=== PATIENT | male | born 1965 | race Caucasian/White ===

== ENCOUNTER 2019-05-07 00:34 | Day surgery (SDC) | payer BC, SELFPAY ==
[2019-04-30 15:14] VITALS: BMI 30.4
[2019-05-07 09:11] VITALS: BP 149/89; PULSE 92; RESP 17; TEMP 36.9; O2SAT 96; BMI 31.4
[2019-05-07] MEDS: LACTATED RINGERS 1,000 ML 150 ML IV CONT (09:26)
--- NOTE | 2019-05-07 09:55 | PM.HPGS ---
History of Present Illness History of Present Illness Consent: Risks, benefits, and alternatives have been discussed and questions answered. Patient agrees to proceed with procedure. Chief complaint: Neoplasm Screening, History of Polyps Narrative: Luis Alberto Valdes is a 54 year old W male for colonoscopy secondary to a history of multiple polyps one year ago. Pt. asymptomatic PMFSH Past Medical History Medical History (Updated 05/07/19 @ 09:57 by Sushant Barkley MD) COPD (chronic obstructive pulmonary disease) Hypertension Surgical History Surgical History (Updated 05/07/19 @ 09:58 by Sushant Barkley MD) History of carpal tunnel release of both wrists Meds Home Medications and Allergies Home Medications Medication Instructions Recorded Confirmed Type amlodipine 10 mg PO DAILY 04/30/19 05/07/19 History hydrocodone-acetaminophen 7.5 tablet PO PRN PRN 04/30/19 05/07/19 History irbesartan-hydrochlorothiazide 300 tablet PO DAILY 04/30/19 05/07/19 History Allergies Allergy/AdvReac Type Severity Reaction Status Date / Time Penicillins Allergy Mild Hives / Verified 05/07/19 09:11 Red Face Vital Signs Vital Signs - 24 hr 05/07/19 09:11 Temperature 36.9 C Pulse Rate 92 Respiratory Rate 17 Blood Pressure 149/89 H Pulse Oximetry 96 Exam Const: Orientation/consciousness: patient oriented x3 Resp: Auscultation: clear to auscultation bilaterally Cardio: Rate: regular rate Rhythm: regular rhythm Heart sounds: no murmurs GI: GI Palp: Yes Soft to palpation, No Tenderness to palpation present (GI), Yes No hepatosplenomegaly present and No Palpable mass present Auscultation: normal bowel sounds Neuro: General: patient oriented x3 and no focal motor deficits Extrem: General: no pedal edema Assessment and Plan Additional Plan colonoscopy secondary to hx of multiple colonic polyps
--- NOTE | 2019-05-07 10:22 | WPDANESEPPF ---
Anes - Initial Pre Proc Eval Procedure: Operation Date: 05/07/19 10:30 Proposed Procedures p Screening Colonoscopy - Sushant Barkley MD Date/Time: 05/07/19 10:22 Surgeon: Sushant Barkley MD Pre Op Diagnosis: Neoplasm Screening, History of Polyps Patient Data Age: 54 Gender: M Height: 5 ft 8 in Weight: 93.7 kg Last Vital Signs Temp 98.5 F 05/07/19 09:11 Pulse 92 05/07/19 09:11 Resp 17 05/07/19 09:11 BP 149/89 H 05/07/19 09:11 Pulse Ox 96 05/07/19 09:11 Allergies Allergy/AdvReac Type Severity Reaction Status Date / Time Penicillins Allergy Mild Hives / Verified 05/07/19 09:11 Red Face Home Medications Medication Instructions Recorded Confirmed Type amlodipine 10 mg PO DAILY 04/30/19 05/07/19 History hydrocodone-acetaminophen 7.5 tablet PO PRN PRN 04/30/19 05/07/19 History irbesartan-hydrochlorothiazide 300 tablet PO DAILY 04/30/19 05/07/19 History Patient hx anesthesia problems: none Family hx anesthesia problems: none PMFSH Past Medical History Medical History (Updated 05/07/19 @ 09:57 by Sushant Barkley MD) COPD (chronic obstructive pulmonary disease) Hypertension Surgical History Surgical History (Updated 05/07/19 @ 09:58 by Sushant Barkley MD) History of carpal tunnel release of both wrists Anes - Eval Final PreProcedure Day of Procedure 05/07/19 10:22 Patient weight: overweight Heart: regular rate and rhythm Lungs: clear to auscultation Airway: Mallampati scale class II Neurological: alert and oriented Last oral intake: >/= 8 hours ASA classification: II Emergent: no Anesthesia type and monitoring: general GIVS and standard monitoring Informed Consent: The patient's anesthetic plan and its attendant risks and benefits were discussed with the patient/family/POA. Questions were solicited and answers provided to the satisfaction of the patient/family/POA.
[2019-05-07] MEDS: SIMETHICONE ORAL SUSPENSION 20 MG/0.3 ML 30 ML BOTTLE 0.6 ML IRRIGATION (11:08)
[2019-05-07 11:22] VITALS: BP 108/72; PULSE 93; RESP 23; O2SAT 94
[2019-05-07 11:32] VITALS: BP 120/75; PULSE 86; RESP 22; O2SAT 97
[2019-05-07 11:42] VITALS: BP 130/76; PULSE 83; RESP 20; O2SAT 97
== END 2019-05-07 11:49 | disposition home or self-care (01) ==
PROVIDERS: PCP Emergency Medicine; Visit Provider Internal Medicine Gastroenterology
PROC: 0DJD8ZZ Inspection of Lower Intestinal Tract, Via Natural or Artificial Opening Endoscopic (ICD-10-PCS; CPT 45378; principal; 2019-05-07 10:30)
DX: Z12.11 Encounter for screening for malignant neoplasm of colon (principal); D12.0 Benign neoplasm of cecum; I10 Essential (primary) hypertension; J44.9 Chronic obstructive pulmonary disease, unspecified
CPT/HCPCS: 45380; 88305; J2704; J7120

== ENCOUNTER 2019-08-27 19:01 | Emergency (ER) | payer OTHER, BC, SELFPAY ==
--- NOTE | ~2019-08-27 | XR_ITS ---
EXAMINATION: XR thoracic spine 3V DATE: 08/27/2019 20:59 INDICATION: Back pain TECHNIQUE: AP, lateral and lateral swimmer's views of the thoracic spine were obtained. COMPARISON: None. FINDINGS: There is no fracture, dislocation, or subluxation. The vertebral body heights and alignment are normal. There is mild loss of intervertebral disc space height at multiple levels of the thoraci c spine. Small degenerative osteophytes project from the anterior endplates of multiple vertebral bod ies. IMPRESSION: 1. Mild thoracic spondylosis without acute findings. Reviewed, dictated and finalized at location A.
--- NOTE | ~2019-08-27 | XR_ITS ---
EXAMINATION: XR hip RT 2V w AP pelvis INDICATION: Right hip pain TECHNIQUE: AP view of the pelvis and two views of the right hip are obtained. COMPARISON: None available FINDINGS: Bone alignment is normal. There is no fracture. Calcified atherosclerosis is noted in the p elvic and right leg. There is mild lower lumbar spondylosis. IMPRESSION: 1. No acute osseous abnormality. Reviewed, dictated and finalized at location A.
--- NOTE | ~2019-08-27 | XR_ITS ---
EXAMINATION: XR lumbar spine 2-3V DATE: 08/27/2019 20:59 INDICATION: Back and hip pain TECHNIQUE: Anteroposterior and lateral views of the lumbar spine, and cone-down lateral view of the l umbosacral junction were obtained. COMPARISON: None. FINDINGS: There is no fracture, dislocation, or subluxation. The vertebral body heights and alignment are normal. The intervertebral disc spaces are maintained. Small degenerative osteophytes project fr om the anterior endplates of multiple vertebral bodies. There is mild facet osteoarthritis of the low er lumbar spine. Calcified atherosclerosis is noted. IMPRESSION: 1. Mild lumbar spondylosis without acute findings. Reviewed, dictated and finalized at location A.
--- NOTE | ~2019-08-27 | CT_ITS ---
EXAMINATION: CT brain wo con INDICATION: Head injury COMPARISON: 02/06/2007 TECHNIQUE: Standard unenhanced head CT. The dose-length product (DLP) was 605.33 mGy-cm. The mA was a djusted according to patient size. Iterative reconstruction technique was employed. FINDINGS: There is no intracranial hemorrhage, acute infarction, or abnormal mass lesion. The ventric les are normal. There is no abnormal mass effect or midline shift. The merritt-white matter differentiat ion is normal. The basal cisterns are patent. The orbits are normal. The paranasal sinuses, mastoids and calvarium are normal. IMPRESSION: 1. No acute intracranial abnormality. Reviewed, dictated and finalized at location A.
--- NOTE | ~2019-08-27 | XR_ITS ---
EXAMINATION: XR femur RT min 2V INDICATION: Right hip pain TECHNIQUE: Two views of the right femur are obtained on four radiographs COMPARISON: None available FINDINGS: Bone alignment is normal. There is no fracture. Calcified atherosclerosis is noted. IMPRESSION: 1. No acute osseous abnormality. Reviewed, dictated and finalized at location A.
--- NOTE | ~2019-08-27 | CT_ITS ---
EXAMINATION: CT cervical spine wo con DATE: 08/27/2019 20:41 INDICATION: Neck pain TECHNIQUE: Computed tomography (CT) of the cervical spine was performed without intravenous contrast. The dose-length product (DLP) was 380.77 mGy-cm. Automated exposure control and iterative reconstruc tion technique were employed. COMPARISON: None FINDINGS: There is no fracture, dislocation, or subluxation. The vertebral body heights, alignment, a nd intervertebral disc spaces are normal. The odontoid is intact. Small degenerative osteophytes proj ect from the anterior endplates of multiple vertebral bodies. The prevertebral soft tissues are robel l. IMPRESSION: 1. Mild cervical spondylosis without acute findings. Reviewed, dictated and finalized at location A.
--- NOTE | 2019-08-27 20:02 | ED.GENADULT ---
HPI - General Adult General Chief complaint: Head Injury Stated complaint: HI, syncope Time Seen by Provider: 08/27/19 20:02 Source: patient Mode of arrival: ambulatory Limitations: no limitations History of Present Illness HPI narrative: 54-year-old male patient presents to the [facility] with complaints of a fall. Patient states that he was at work today and states that he was doing something with a trailer and it came loose and he fell back hitting his neck and head on another trailer behind him as well as falling to the ground hitting his right hip. Patient denies loss of consciousness but states he was seeing stars . Patient denies any lightheadedness or dizziness at this time but does complain of a headache to bilateral parietal areas. Patient denies any numbness or tingling to the lower extremities or upper extremities. Denies any loss of bowel or bladder control. Patient states he did take 1 Vicodin prior to coming for the pain. Related Data Home Medications Medication Instructions Recorded Confirmed amlodipine 10 mg PO DAILY 04/30/19 05/07/19 hydrocodone-acetaminophen 7.5 tablet PO PRN PRN 04/30/19 05/07/19 irbesartan-hydrochlorothiazide 300 tablet PO DAILY 04/30/19 05/07/19 Allergies Allergy/AdvReac Type Severity Reaction Status Date / Time Penicillins Allergy Mild Hives / Verified 05/07/19 09:11 Red Face Review of Systems Review of Systems: Narrative: CONSTITUTIONAL: Denies fever, chills, or sweats. EYES: Denies visual changes, redness, or discharge. ENT: Denies rhinorrhea, congestion, sore throat, or otalgia. CARDIOVASCULAR: Denies chest pain, palpitations, or edema. RESPIRATORY: Denies cough or dyspnea. GASTROINTESTINAL: Denies abdominal pain, nausea, vomiting, or diarrhea. GENITOURINARY: Denies dysuria or hematuria. SKIN: Denies rash or itching. MUSCULOSKELETAL: Positive head, neck and back pain, denies joint pain, or myalgia. NEUROLOGIC: Positive headache, denies numbness, or weakness. PSYCHIATRIC: Denies anxiety or depression. [facility] Past Medical History Medical History COPD (chronic obstructive pulmonary disease) Hypertension Surgical History Surgical History History of carpal tunnel release of both wrists Social History Social History Gender identity (if verbalized by the patient): Male Comments At the time of my signature I agree with nursing past medical history, surgical, social, and family history. There is no relevant family history pertinent to the presenting complaint. Exam Narrative: Exam Narrative: GENERAL: Well-appearing, well-nourished, and in no acute distress. HEAD: Normocephalic, atraumatic. Patient complaining of headache pain to bilateral temporal lobes EYES: PERRLA and EOMI. ENT: Nares clear, no rhinorrhea or epistaxis. Mucous membranes moist. NECK: Supple, no lymphadenopathy. No surface trauma, no soft tissue or muscle tenderness or spasm noted. Trachea midline. No subq emphysema or crepitus. Tenderness noted to C7 on palpation. FROM without limitation or pain, pain with flexion, extension,Lateral bending, rotation, and axial load. CHEST: Clear to auscultation. No respiratory distress. HEART: Regular rate and rhythm. No murmur heard. Normal peripheral pulses. ABDOMEN: Soft, nontender, nondistended, normal active bowel sounds. EXTREMITIES: Patient is able to ambulate to treatment area without difficulty or assistance, pain, or limp. No surface trauma, ecchymosis. no erythema, warmth. No deformity or crepitus or obvious asymmetry of the affected leg compared to the other. No tenderness to palpation over symphysis pubis, ischial bone,iliac crest, trochanter, tenderness to the SI notch, denies tenderness to the buttocks, tenderness to the quadriceps, femoral triangle, inguinal ligament. No inguinal lymphadenopathy. R
[2019-08-27 21:03] VITALS: BP 147/98; PULSE 82; RESP 20; TEMP 36.7; O2SAT 97
[2019-08-27 21:12] VITALS: O2SAT 98
--- NOTE | 2019-08-27 23:08 | PC.NURSE ---
Pt refused placement of c collar.
[2019-08-27 23:09] VITALS: BP 167/102; PULSE 81; RESP 16; O2SAT 95
== END 2019-08-27 22:36 | disposition home or self-care (01) ==
PROVIDERS: Emergency Provider Nurse Practitioner Family; PCP Emergency Medicine
DX: S09.90XA Unspecified injury of head, initial encounter (principal); W01.198A Fall on same level from slipping, tripping and stumbling with subsequent striking against other object, initial encounter
CPT/HCPCS: 70450; 72072; 72100; 72125; 73502; 73552; 99284

== ENCOUNTER 2021-08-31 07:42 | Emergency (ER) | payer BC, SELFPAY ==
[2021-08-31] VITALS (10 sets, daily range): BP systolic 114–122; BP diastolic 75–79; PULSE 82–92; RESP 15–29; TEMP 36.2; O2SAT 94–98
--- NOTE | ~2021-08-31 | XR_ITS ---
EXAMINATION: XR shoulder LT min 2V INDICATION: Shoulder pain after fall TECHNIQUE: Four views of the left shoulder are submitted. COMPARISON: None FINDINGS: Normal alignment. No fracture. There is moderate osteoarthritis of the acromioclavicular jesus int and mild osteoarthritis of the glenohumeral joint. Soft tissues are unremarkable. IMPRESSION: 1. No acute osseous abnormality. Reviewed, dictated and finalized at location A.
--- NOTE | ~2021-08-31 | CT_ITS ---
EXAMINATION: CT brain wo con DATE: 08/31/2021 08:29 INDICATION: Syncopal episode. Patient struck head. TECHNIQUE: Computed tomography (CT) of the head was performed without intravenous contrast. The mA wa s adjusted according to patient size. Iterative reconstruction technique was employed. Exam dose: 60 5.33 mGy-cm total exam DLP. COMPARISON: 08/27/2019 CT brain. FINDINGS: No intracranial mass lesion or hemorrhage or vascular accident. No midline shift or mass ef fect. Some internal carotid artery calcifications are noted bilaterally. There is nonspecific diminished at tenuation of the cerebral white matter, likely due to chronic small vessel ischemic changes. Normal ventricular size. No subdural or epidural hematoma. No fracture or bone destruction of the cranial vault. The mastoid air cells and included paranasal sinuses are unremarkable. IMPRESSION: Cerebral atherosclerosis and chronic small vessel ischemic changes of the cerebral white matter No acute intracranial finding Reviewed, dictated and finalized at Location A. Reviewed, dictated and finalized at location B.
--- NOTE | ~2021-08-31 | XR_ITS ---
EXAMINATION: XR chest 2V DATE: 08/31/2021 08:35 INDICATION: Transient alteration of awareness TECHNIQUE: Frontal and lateral views of the chest are obtained COMPARISON: 12/06/2017 FINDINGS: The lungs are free of acute opacities. There is no pleural effusion or pneumothorax. The ca rdiomediastinal silhouette is normal. There is moderate thoracic spondylosis. IMPRESSION: 1. No acute cardiopulmonary abnormality. Reviewed, dictated and finalized at location A.
--- NOTE | ~2021-08-31 | XR_ITS ---
EXAMINATION: XR humerus LT DATE: 08/31/2021 08:57 INDICATION: Left arm pain and limited range of motion post fall TECHNIQUE: AP and lateral views of the left humerus were obtained. COMPARISON: None. FINDINGS: Bone alignment is normal. No fracture. Polyarticular osteoarthritis, moderate at the left acromioclav icular joint and mild at the left glenohumeral and elbow joints. Soft tissues are unremarkable. Atele ctasis in the left lung with bronchovascular crowding likely due to expiratory phase of imaging. IMPRESSION: 1. 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 No acute osseous abnormality. Reviewed, dictated and finalized at location A. IMPRESSION: 1. 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 No acute osseous ab normality.
--- NOTE | 2021-08-31 08:01 | ECG_ITS ---
Measurements Intervals [place] Rate: 87 P: 56 [place]: 142 QRS: 22 QRSD: 87 T: 30 QT: 330 QTc: 399 Interpretive Statements SINUS RHYTHM NORMAL ECG NO PREVIOUS ECG AVAILABLE FOR COMPARISON Electronically Signed On 09-02-2021 11:55:58 CDT by Marshal Woods M.D.
[2021-08-31 08:14] LABS: Basophils Percent Auto 0.5 % (0.2-1.2); Eosinophils Percent Auto 0.5 % (0-4.4); Hematocrit 48.3 % (42.0-52.0); Hemoglobin 16.8 g/dL (14.0-18.0); Immature Granulocyte Absolute 0.02 K/mm3 (0.00-0.031); Immature Granulocyte Percent A 0.2 % (0-0.5); Lymphocytes Absolute Auto 1.19 K/mm3 (0.9-3.2); Lymphocytes Percent Auto 14.7 % (18.3-44.2); Mean Corpuscular HGB Conc 34.8 g/dl (32-36); Mean Corpuscular Hemoglobin 33.3 pg (26-34); Mean Corpuscular Volume 95.8 fl (80-100); Monocytes Absolute Auto 1.2 K/mm3 (0.1-0.6); Monocytes Percent Auto 14.7 % (2.6-8.5); Neutrophils Absolute Auto 5.6 K/mm3 (1.3-6.7); Neutrophils Percent Auto 69.4 % (45.5-73.1); Platelet Count Result 200 k/mm3 (150-375); Red Blood Count 5.04 M/mm3 (4.6-6.20); Red Cell Distribution Width 12.8 % (11.5-14.5); White Blood Count 8.1 K/mm3 (4.5-10.0)
--- NOTE | 2021-08-31 08:25 | PC.NURSE ---
Patient off unit to Radiology.
[2021-08-31 08:52] LABS: SARS-CoV-2 RNA PCR Positive
[2021-08-31 08:56] LABS: Alanine Aminotransferase 43 U/L (6-50); Albumin Level 4.8 g/dL (3.5-5.1); Alkaline Phosphatase 78 U/L (38-126); Anion Gap 8 mmol/L (8-16); Aspartate Amino Transferase 43 U/L (17-59); Bilirubin,Total 0.4 mg/dL (0.2-1.3); Blood Urea Nitrogen 21 mg/dL (9-20); Carbon Dioxide 22 mmol/L (22-30); Chloride 103 mmol/L (98-107); Estimated CRCL calculation 85 ml/min; Estimated Glomerular Filt Rate > 60; Glucose 117 mg/dL (65-110); Potassium 4.7 mmol/L (3.4-5.0); Sodium 133 mmol/L (137-145)
[2021-08-31 09:27] LABS: Troponin I < 0.012 ng/mL (0.000-0.034)
--- NOTE | 2021-08-31 10:14 | ED.GENADULT ---
HPI - General Adult General Chief complaint: Syncope Stated complaint: glf last night - hit head and left shoulder Time Seen by Provider: 08/31/21 07:45 History of Present Illness HPI narrative: Patient is a 56-year-old male who presents ER with multiple issues. Reports he was having a coughing fit yesterday evening that caused him to have a syncopal episode. He struck his head and has abrasion to left forehead. He also landed on his left side injuring his left shoulder. Cannot perform range of motion due to the pain. No numbness or tingling to the affected shoulder or arm. No chest pain or chest pressure. Reports he has been having shaking chills and sweats for the last 3 days. No known sick contacts. Cough is nonproductive. He is vaccinated against COVID. Related Data Home Medications Medication Instructions Recorded Confirmed amlodipine 10 mg tablet 10 mg PO DAILY 04/30/19 05/07/19 hydrocodone 7.5 mg-acetaminophen 7.5 tablet PO PRN PRN Pain 04/30/19 05/07/19 325 mg tablet irbesartan 300 300 tablet PO DAILY 04/30/19 05/07/19 mg-hydrochlorothiazide 12.5 mg tablet Allergies Allergy/AdvReac Type Severity Reaction Status Date / Time Penicillins Allergy Mild Hives / Verified 08/31/21 07:56 Red Face Review of Systems Constitutional: Constitutional: Reports chills, Reports fatigue and Reports fever(s) ENT: Denies nasal congestion and Denies sore throat Cardiovascular: Cardiovascular: Denies chest pain, Denies rapid heart rate and Denies radiating jaw, neck or arm pain Respiratory: Respiratory: Reports cough and Denies dyspnea Gastrointestinal: Gastrointestinal: Denies abdominal pain, Denies nausea and Denies vomiting Musculoskeletal: Musculoskeletal: Reports arthralgias, Denies joint swelling and Denies muscle cramps Neurologic: Reports syncope, Denies focal weakness and Denies numbness [facility] Past Medical History Medical History (Updated 08/31/21 @ 10:20 by Guille Rausch MD) COPD (chronic obstructive pulmonary disease) Hypertension Surgical History Surgical History History of carpal tunnel release of both wrists Social History Social History : Male Exam Narrative: GENERAL: Unwell-appearing, well-nourished, and in no acute distress. HEAD: Normocephalic, linear abrasion left forehead. EYES: PERRL and EOMI. ENT: Mucous membranes moist. CHEST: Clear to auscultation. No respiratory distress. HEART: Regular rate and rhythm. Normal peripheral pulses. ABDOMEN: Soft, nontender, nondistended. EXTREMITIES: Patient's left upper extremity most comfortable in internal rotation with the and draped over the lower chest. Unable perform forward flexion/external rotation/abduction due to pain. Tender palpation over the AC process. No swelling or bruising noted. SKIN: Warm, diaphoretic, no rash. NEURO: Alert and oriented x3. PSYCH: Normal mood and affect. Course Course Emergency Course: Patient informed of results. Will refer to orthopedic surgery for further evaluation of the shoulder. Patient may have a shoulder or a rotator cuff tear require MRI. We will also start patient on Plaxovid. Vital Signs Vital signs: Vital Signs Temperature 97.1 F L 08/31/21 07:47 Pulse Rate 90 08/31/21 07:47 Respiratory Rate 18 08/31/21 07:47 Blood Pressure 122/79 08/31/21 07:47 Pulse Oximetry 95 08/31/21 07:47 Oxygen Delivery Room Air 08/31/21 07:47 Temperature 97.1 F L 08/31/21 07:47 Pulse Rate 88 08/31/21 08:45 Respiratory Rate 19 08/31/21 08:45 Blood Pressure 114/75 08/31/21 08:36 Pulse Oximetry 94 08/31/21 08:45 Oxygen Delivery Room Air 08/31/21 08:41 Medical Decision Making Vital Signs Vital Signs: Vital Signs Temperature 97.1 F L 08/31/21 07:47 Pulse Rate 90 08/31/21 07:47
== END 2021-08-31 10:45 | disposition home or self-care (01) ==
PROVIDERS: Emergency Provider Emergency Medicine; PCP Emergency Medicine
DX: U07.1 COVID-19 (principal); R55 Syncope and collapse; R05.8 Other specified cough; S46.012A Strain of muscle(s) and tendon(s) of the rotator cuff of left shoulder, initial encounter; J44.9 Chronic obstructive pulmonary disease, unspecified; I10 Essential (primary) hypertension; M19.022 Primary osteoarthritis, left elbow; M19.012 Primary osteoarthritis, left shoulder; I67.2 Cerebral atherosclerosis; W18.39XA Other fall on same level, initial encounter
CPT/HCPCS: 36415; 70450; 71046; 73030; 73060; 80053; 84484; 85025; 93005; 99284; A4565; C9803; U0003; U0005

== ENCOUNTER 2022-06-23 10:56 | Outpatient (CLI) | payer OTHER, BC, SELFPAY ==
--- NOTE | 2022-06-23 11:19 | ECG_ITS ---
Measurements Intervals [place] Rate: 83 P: 64 [place]: 152 QRS: 29 QRSD: 92 T: 39 QT: 358 QTc: 422 Interpretive Statements SINUS RHYTHM COMPARED TO ECG 08/31/2021 08:07:31 NO SIGNIFICANT CHANGES Electronically Signed On 06-23-2022 15:58:11 CDT by Renaldo Gandhi M.D.
== END 2022-06-23 10:57 | disposition home or self-care (01) ==
PROVIDERS: PCP Emergency Medicine; Visit Provider Emergency Medicine
DX: Z01.810 Encounter for preprocedural cardiovascular examination (principal)
CPT/HCPCS: 93005